=== PATIENT | male | born 1960 | race Hispanic/Latino ===

== ENCOUNTER 2017-02-13 18:09 | Emergency (ER) | payer OTHER ==
[~2017-02-13] VITALS: Ht 170.2 cm; Wt 93.2 kg
[2017-02-13 18:10] VITALS: BP 164/80; PULSE 95; RESP 20; O2SAT 100
--- NOTE | 2017-02-13 20:03 | ED.REPORT ---
HPI-Back Pain 40 and Over Date of Service Feb 13, 2017 ED Provider: Onur Horowitz MD A 56 year old male with a history of chronic back pain presents to the ED complaining of lower extremity pain. The pt has been experiencing this for two weeks, and describes the pain as shooting pains in his lower extremities and squeezing in his ankles. He also reports diaphoresis, chills and pain in his lower back, but reports having the back pain for years. He denies abdominal pain , diarrhea, constipation, dysuria, focal weakness, numbness, incontinence, or current fever. He also denies recent trauma. Nursing Notes Stated Complaint: SWEATING, DIZZY, HEADACHE Chief Complaint: Extremity Trauma Nursing Notes Reviewed: Yes Allergies: Coded Allergies: Penicillins (Verified Allergy, Mild, 02/13/17) codeine (Verified Allergy, Mild, 02/13/17) General Time Seen by MD: 19:56 Chief Complaint Other (Lower extremity pain) Hx Obtained From: Patient Arrived By: Walk-in Sudden in Onset?: No Onset Occurred: More than a week ago... Symptom Duration: Since onset Recent Healthcare: Recent doctor visit Similar Sx Previous: Yes Past Medical History Past Medical History chronic back pain Past Surgical History none reported Smoking History Unknown if Ever Smoker Social History Other Social History: Good social support Ambulatory Status Independent Review of Systems Constitutional: Reports: Chills, Fever Respiratory: Denies: Non-productive cough, Shortness of breath Cardiovascular: Denies: Chest pain GI: Denies: Abdominal pain, Constipation, Diarrhea, Nausea, Vomiting Male: Denies Dysuria, Denies Incontinence Musculoskeletal: Reports: Back pain, Extremity pain, Denies: Neck pain Neurologic: Denies: Weakness Complete sys rev & neg: except as marked. Skin: Reports Diaphoresis Physical Exam Initial Vital Signs Vital Signs (First) Date Time Temp Pulse Resp B/P Pulse Ox O2 Delivery O2 Flow Rate FiO2 02/13/17 18:10 36.4 95 20 164/80 100 Room Air Initial VS: Reviewed General/Constitutional: Awake, Alert Respiratory / Chest: Atraumatic, Breath sounds NL, Breath sounds = bilat, No respiratory distress Cardiovascular: Heart rate NL, Regular rhythm, Heart sounds NL Abdomen: Atraumatic, Soft, Non-tender Back: Atraumatic, Full range of motion, No CVA tenderness diffuse low back tenderness Neurologic: Oriented X3, Speech NL, No motor deficits, No sensory deficits lower extremity strength 5/5 Neck: Atraumatic, Supple, Full range of motion Lower Extremity / Pelvis / MS: Atraumatic, Full range of motion Skin: Atraumatic, Color NL, No rash, Warm, Dry Head / Eyes: Atraumatic, Normocephalic, PERRL, EOMI ENT: Atraumatic, Airway patent, Mucous membranes moist Upper Extremity / MS: Atraumatic, Full range of motion Psychiatric: Affect NL, Mood NL Interpretation & Diagnostics Lab Results Interpretation Test 02/13/17 20:35 Hold Urine Received (Received) Re-Eval/Medical Decision Med Decision/Clinical Course 56-year-old male long history of recurrent low back pain presenting with several weeks of low back pain radiating down the back of both legs. He denies any weakness, numbness, tingling, saddle anesthesia, incontinence. He denies any urinary symptoms. Does report a fever several days ago subjective which is resolved for the past couple days. His vital signs are stable. His exam is reassuring. He has no abdominal tenderness. His bilateral lower extremity neurological exam is normal. He has diffuse low back tenderness. No midline tenderness. He has been seen by 2 ERs in the past couple weeks with normal workup. He denies any trauma. His urine here is negative. His pain improved with Toradol. Suspect acute exacerbation of his chronic low back pain. Given worsening nature I think he may benefit from an MRI of his low back though I do not see any indication for performing this emergently tonight. He has no red flag symptoms as above. Advised him to follow-up with his primary doctor tomorrow for recheck and further workup. Return precautions given. Patient was counseled with plan he is agreeable to this plan. Source of Hx: Old records Re-Evaluation/Progress : Time of Eval: 19:56 Patient Status: Condition improved Re-Evaluation/Progress Note: Pt informed of the diagnosis and plan for discharge during the initial interview. The pt understands and agrees with the plan. All questions are addressed at this time. Counseled Regarding: Diagnosis, Need for follow-up, When/why to return to ED Discharge & Departure Impression: Primary Impression: Low back pain Chronicity: chronic Back pain laterality: midline Sciatica presence: unspecified whether sciatica present Qualified Code: M54.5 - Low back pain Additional Impression: Sciatica Laterality: unspecified laterality Qualified Code: M54.30 - Sciatica, unspecified side Disposition: Home Discharge Condition All VS Reviewed: Yes Condition: Stable Patient Instructions: Chronic Back Pain (ED), Sciatica (ED) Additional Instructions: Thank you for allowing us to be part of your care. Your urine was normal. Call your primary care physician to arrange a follow up appointment this week, and arrange to have an MRI. Return to the emergency department if you develop any new or worsening symptoms including fever, abdominal pain, vomiting, weakness in one leg, numbness between your legs or incontinence. Referrals: [facility] ([facility]) Scribe Attestation Portions of this note were transcribed by Jorge Pimentel. I, Dr. Horowitz personally performed the history, physical exam and medical decision-making; I reviewed and confirmed the accuracy of the information in the transcribed note. Onur Horowitz MD Feb 13, 2017 20:03 JORGE PIMENTEL Feb 13, 2017 20:13
[2017-02-13 20:44] VITALS: BP 120/78; PULSE 80; RESP 12; O2SAT 98
[2017-02-13 21:04] VITALS: BP 120/78; PULSE 80; RESP 12; O2SAT 98
== END 2017-02-13 21:05 | disposition home or self-care (01) ==
LOC: SED 18:09
DX: M54.40 Lumbago with sciatica, unspecified side (principal); Z88.0 Allergy status to penicillin; Z88.5 Allergy status to narcotic agent
CPT/HCPCS: 96372; 99284; J1885